=== PATIENT | female | born 1960 | race Caucasian/White ===

== ENCOUNTER 2022-02-16 12:57 | Emergency (ER) | payer BC ==
[2022-02-16] MEDS ORDERED: Aspirin 81 MG Tab.Chew PO ONE (14:29)
== END 2022-02-16 14:38 | disposition home or self-care (01) ==
LOC: FB.ED 12:57
DX: R07.9 Chest pain, unspecified (principal); Z88.1 Allergy status to other antibiotic agents; Z88.2 Allergy status to sulfonamides; Z79.899 Other long term (current) drug therapy
CPT/HCPCS: 36415; 80053; 83735; 84443; 84484; 85025; 85379; 86140; 93005; 93010; 99283; 99285-25; A9270-GY